=== PATIENT | female | born 1960 | race Native Hawaiian/Other Pacific Islander ===

== ENCOUNTER 2020-03-08 08:51 | Emergency (ER) | payer OTHER ==
[~2020-03-08] VITALS: Ht 157.5 cm; Wt 62.6 kg
[2020-03-08 08:54] VITALS: BP 171/82; TEMP 97.8
== END 2020-03-08 09:32 | disposition home or self-care (01) ==
LOC: EDBD 08:51 → ED 08:51
DX: S00.83XA Contusion of other part of head, initial encounter (principal); W01.198A Fall on same level from slipping, tripping and stumbling with subsequent striking against other object, initial encounter; Y92.89 Other specified places as the place of occurrence of the external cause
CPT/HCPCS: 99282

== ENCOUNTER 2022-02-20 16:24 | Emergency (ER) | payer OTHER ==
[~2022-02-20] VITALS: Ht 157.5 cm; Wt 62.6 kg
[2022-02-20 16:32] VITALS: BP 169/98; TEMP 97.9
[2022-02-20 16:59] LABS: POTASSIUM 3.8 mmol/L (3.6-5.2)
[2022-02-20 17:02] LABS: PLATELET COUNT 187 K/uL (152-353)
[2022-02-20] MEDS ORDERED: AMLODIPINE BESYLATE PO (20:46)
[2022-02-20] MEDS ORDERED: ASA LOW DOSE81 MG PO (20:47)
[2022-02-20] MEDS ORDERED: B-12500 MCG PO (20:48)
[2022-02-20] MEDS ORDERED: OMEP40CA PO (20:56)
[2022-02-20] MEDS ORDERED: SENOKOT S1 TAB PO (20:58)
[2022-02-20] MEDS ORDERED: ZIPR20CA PO (21:04)
[2022-02-20] MEDS ORDERED: CARBAMAZEPIN200 M2 PO (21:09)
[2022-02-20] MEDS ORDERED: DIVALPROEX250 M1 PO (21:10)
[2022-02-20] MEDS ORDERED: LAMICTAL150 MG PO (21:14)
[2022-02-20] MEDS ORDERED: LYRICA50 MG PO (21:15)
[2022-02-20] MEDS ORDERED: HALO5INJ3 IM (21:17)
[2022-02-20] MEDS ORDERED: PAIN RELIEF EX500 M2 PO (21:20)
== END 2022-02-20 17:32 | disposition still patient (30) ==
LOC: ED 16:24
PROVIDERS: Emergency Medicine
DX: Z87.820 Personal history of traumatic brain injury (principal); F41.8 Other specified anxiety disorders; R45.1 Restlessness and agitation; Z11.52 Encounter for screening for COVID-19; Z04.6 Encounter for general psychiatric examination, requested by authority
CPT/HCPCS: 80053; 81002; 85027; 87635; 93005; 99283; U0003